=== PATIENT | female | born 1960 | race African-American/Black ===

== ENCOUNTER 2020-01-21 03:51 | Emergency (ER) | payer OTHER ==
[~2020-01-21] VITALS: Ht 154.9 cm; Wt 87.5 kg
--- NOTE | 2020-01-21 04:01 | PHYS DOC ---
Past History Past Medical History: Anxiety, Bronchitis, Cancer, Diabetes, Fibromyalgia, High Cholesterol, Hypertension, IBS, Migraines, Other (KYREE HEARD MD) Past Surgical History: Hysterectomy, Tubal ligation, Other Past Surgical History 2018. Bowel Obstruction and Cancer (KYREE HEARD MD) Alcohol Use: None Drug Use: None (KYREE HEARD MD) General Adult EDM: Chief Complaint: COUGH HPI: HPI: ". I ve been sick too long.. been coughing.. nothing coming up... I do have fibromyalgia.. and chronic pain.. just not right.. " .. " just not right..." Patient is a 59 year old female who presents with above hx and complaints increased complaints of myalgia, arthralgia, fever, chills and malaise. Patient has had a nonproductive cough for the past week. Patient denies any recent travel outside the [place] area. Did have a large family meeting for Thanksgiving but reportedly none of them have come down with Covcuco. Patient normally follows at for all her care. Has in the past followed at [facility]. Patient has past medical history of prediabetes, hypertension, elevated cholesterol, arthritis, and chronic fibromyalgia. Patient had previous episode of small bowel obstruction 2018 and with that surgery they discovered some cancer. Reportedly the surgery cleared any evidence of cancer. Patient had no chemotherapy or radiation afterwards. Patient denies any change in meds. Patient did not get a flu vaccination this year. (KYREE HEARD MD) Review of Systems: Review of Systems: Constitutional: Subjective complaints of fever or chills Eyes: Denies change in visual acuity HENT: Denies nasal congestion or sore throat Respiratory: Complains of cough nonproductive Cardiovascular: Denies chest pain or edema GI: Denies abdominal pain, nausea, vomiting, bloody stools or diarrhea : Denies dysuria Musculoskeletal: Complains of generalized arthralgia and myalgia Integument: Denies rash Neurologic: Denies headache, focal weakness or sensory changes Endocrine: Denies polyuria or polydipsia Lymphatic: Denies swollen glands Psychiatric: Denies depression or anxiety (KYREE HEARD MD) Family History: Family History: Noncontributory to presentation (KYREE HEARD MD) Current Medications: Current Meds: See nursing for home meds (KYREE HEARD MD) Allergies: Allergies: Allergies Coded Allergies Type Severity Reaction Last Updated Verified Penicillins Allergy Intermediate 11/06/13 No codeine Allergy Intermediate 11/06/13 No phenol Allergy Intermediate CHLORACETIN 11/06/13 Yes acetaminophen Allergy Mild 11/06/13 No (KYREE HEARD MD) Physical Exam: PE: Constitutional: Moderate acute distress, non-toxic appearance. [] HENT: Normocephalic, atraumatic, bilateral external ears normal, oropharynx moist, no oral exudates, nose lysed for own turbinates with clear rhinorrhea Eyes: PERRLA, EOMI, conjunctiva normal, no discharge. [] Neck: Normal range of motion, no tenderness, supple, no stridor. [] Cardiovascular: Tacky heart rate regular rhythm, no murmur, PMI to the left Lungs & Thorax: Bilateral breath sounds equal apex with few scattered wheezes, basilar crackles on auscultation [] Abdomen: Bowel sounds normal, soft, no tenderness, no masses, no pulsatile masses. Obese. Skin: Warm, dry, no erythema, no rash. [] Back: No tenderness, no CVA tenderness. [] Extremities: No tenderness, no cyanosis, no clubbing, ROM intact, ankle edema. [] Neurologic: Alert and oriented X 3, normal motor function, normal sensory function, no focal deficits noted. [] Psychologic: Affect anxious , judgement normal, mood normal. [] (KYREE HEARD MD) EKG: EKG: [] (KYREE HEARD MD) Radiology/Procedures: Radiology/Procedures: [][place] [address] IMAGING REPORT Signed PATIENT: JOCELINE COLIN ACCOUNT: [id number] : 1960 LOCATION: ER AGE: 59 SEX: F EXAM STATUS: PRE ER ORD. PHYSICIAN: KYREE HEARD MD REASON: Abdomen pain, nausea, hx SBO PROCEDURE: ACUTE ABDOMEN SERIES INDICATION: Reason: Abdomen pain, nausea, hx SBO / Spl. Instructions: / History: COMPARISON: None. IMPRESSION: 3 views of the chest and abdomen. Degenerative changes the spine. Cardiac silhouette is unremarkable. No definite focal airspace consolidation. Scoliotic curvature of the spine. Air scattered throughout the large and small bowel in a nonspecific but not grossly obstructive pattern. Degenerative changes of the bilateral hips. There is a calcification in the right hemipelvis measuring approximately 3 mm. Could be secondary to a phlebolith but would correlate with symptoms in the region given that a ureter stone can also have this appearance. Electronically signed by: Jay Thompson MD (01/21/2020 5:15 AM) DESKTOP- [id number] DICTATED AND SIGNED BY: JAY THOMPSON MD DATE: 01/21/20 0511 CC: KYREE HEARD MD; MIKO QUINTANA MD ~MTH0 0 (KYREE HEARD MD) Heart Score: Risk Factors: Risk Factors: DM, Current or recent (<one month) smoker, HTN, HLP, family history of CAD, obesity. Risk Scores: Score 0 - 3: 2.5% MACE over next 6 weeks - Discharge Home Score 4 - 6: 20.3% MACE over next 6 weeks - Admit for Clinical Observation Score 7 - 10: 72.7% MACE over next 6 weeks - Early Invasive Strategies (KYREE HEARD MD) Course & Med Decision Making: Course & Med Decision Making Pertinent Labs and Imaging studies reviewed. (See chart for details) Pt. endorse to Dr. Perdomo at shift. change. She will make disposition of pt. Impression: 1. Fibromyalgia exacerbation [] (KYREE HEARD MD) Dragon Disclaimer: Dragon Disclaimer: This electronic medical record was generated, in whole or in part, using a voice recognition dictation system. (KYREE HEARD MD) Departure Departure: Impression: Primary Impression: Cough Disposition: 01 DC HOME SELF CARE/HOMELESS Condition: STABLE Referrals: MIKO QUINTANA MD (PCP) Patient Instructions: Cough, Adult, [id number] Dragon Disclaimer This chart was dictated in whole or in part using Voice Recognition software in a busy, high-work load, and often noisy Emergency Department environment. It may contain unintended and wholly unrecognized errors or omissions. (KYREE HEARD MD) KYREE HEARD MD Jan 21, 2020 04:01 YO PERDOMO MD Jan 21, 2020 07:50
[2020-01-21] MEDS ORDERED: IV RINGERS SOLUTION,LACTATED 1,000 ML IV SCH (04:30)
[2020-01-21] MEDS ORDERED: ALBUTEROL SULFATE 8GM INHALER. INH ONE (04:45)
--- NOTE | 2020-01-21 05:18 | RAD ---
INDICATION: Reason: Abdomen pain, nausea, hx SBO / Spl. Instructions: / History: COMPARISON: None. IMPRESSION: 3 views of the chest and abdomen. Degenerative changes the spine. Cardiac silhouette is unremarkable. No definite focal airspace consolidation. Scoliotic curvature of the spine. Air scattered throughout the large and small bowel in a nonspecific but not grossly obstructive pattern. Degenerative changes of the bilateral hips. There is a calcification in the right hemipelvis measuring approximately 3 mm . Could be secondary to a phlebolith but would correlate with symptoms in the region given that a ure ter stone can also have this appearance. Electronically signed by: Eduardo Vizcarra MD (01/21/2020 5:15 AM) [id number]
[2020-01-21 05:36] LABS: BACTERIA,URINE 0 /HPF (0-FEW); BARBITURATES NEG (NEG); BENZODIAZEPINES NEG (NEG); BILIRUBIN,URINE NEG (NEG); CANNABINOIDS NEG (NEG); CLARITY,URINE CLEAR; COCAINE NEG (NEG); COLOR,URINE YELLOW; GLUCOSE,URINE NEG (NEG); METHADONE NEG (NEG); NITRITE,URINE NEG (NEG); OPIATES NEG (NEG); PHENCYCLIDINE NEG (NEG); RBC,URINE 0 /HPF (0-2); SQUAMOUS EPITHELIAL CELL,UR OCC /LPF; UROBILINOGEN,URINE 0.2 mg/dL (0.2 mg/dL)
[2020-01-21 05:37] LABS: AMPHETAMINE/METHAMPHETAMINE NEG (NEG)
[2020-01-21 06:35] LABS: BASO % 1 % (0-3); EOS # 0.2 x10^3/uL (0.0-0.7); EOS % 4 % (0-3); HEMATOCRIT 41.9 % (36.0-47.0); HEMOGLOBIN 13.8 g/dL (12.0-15.5); LYMPH # 1.4 x10^3/uL (1.0-4.8); LYMPH % 26 % (24-48); MEAN CORPUSCULAR HEMOGLOBIN 29 pg (25-35); MEAN CORPUSCULAR HGB CONC 33 g/dL (31-37); MEAN CORPUSCULAR VOLUME 87 fL (79-100); MONO # 0.4 x10^3/uL (0.0-1.1); MONO % 8 % (0-9); NEUT # 3.3 x10^3uL (1.8-7.7); NEUT % 62 % (31-73); PLATELET COUNT 270 x10^3/uL (140-400); RED BLOOD COUNT 4.83 x10^6/uL (3.50-5.40); RED CELL DISTRIBUTION WIDTH 14.2 % (11.5-14.5); WHITE BLOOD COUNT 5.4 x10^3/uL (4.0-11.0)
[2020-01-21 06:42] LABS: CALCIUM 9.7 mg/dL (8.5-10.1); CREATININE 1.1 mg/dL (0.6-1.0); GFR 61.9; POTASSIUM 3.8 mmol/L (3.5-5.1)
[2020-01-21 06:54] LABS: ALBUMIN 3.6 g/dL (3.4-5.0); C REACTIVE PROTEIN 2.3 mg/L (0-3.3); DIRECT BILIRUBIN 0.1 mg/dL (0.0-0.2); MAGNESIUM 1.8 mg/dL (1.8-2.4); TOTAL BILIRUBIN 0.4 mg/dL (0.2-1.0); TOTAL PROTEIN 7.1 g/dL (6.4-8.2)
[2020-01-21] MEDS ORDERED: ONDANSETRON PF 4 MG/2 ML VIAL. IVP ONE (07:45)
[2020-01-21] MEDS ORDERED: ONDANSETRON PF 4 MG/2 ML VIAL. ONE (07:47)
[2020-01-21 07:51] VITALS: BP 131/75
--- NOTE | 2020-01-21 12:03 | EKG ---
[address] [address] Test Date: 2020-01-21 Test Time: 06:37:09 Pat Name: JOCELINE MCGRAW Department: Room: Gender: F [employer] Work[employer] Helper: PEGGY : 1960 Requested By: YO LAZARO Order Number: [id number] Reading MD: Measurements Intervals [place] Day Rate: 76 P: 59 MD: 180 QRS: -9 QRSD: 82 T: 15 QT: 406 QTc: 461 Interpretive Statements SINUS RHYTHM LEFTWARD AXIS QRS(T) CONTOUR ABNORMALITY CONSISTENT WITH INFERIOR INFARCT PROBABLY OLD ABNORMAL ECG RI6.02 No previous ECG available for comparison
== END 2020-01-21 08:30 | disposition home or self-care (01) ==
LOC: ER 03:51
DX: M79.7 Fibromyalgia (principal); R05 Cough; R50.9 Fever, unspecified; F41.9 Anxiety disorder, unspecified; E11.9 Type 2 diabetes mellitus without complications; E78.00 Pure hypercholesterolemia, unspecified; I10 Essential (primary) hypertension; K52.89 Other specified noninfective gastroenteritis and colitis; G43.909 Migraine, unspecified, not intractable, without status migrainosus; Z88.0 Allergy status to penicillin; Z88.5 Allergy status to narcotic agent; Z88.8 Allergy status to other drugs, medicaments and biological substances
CPT/HCPCS: 36415; 74022; 80048; 80076; 80307; 81001; 82550; 83690; 83735; 83880; 84443; 84484; 85025; 85379; 85610; 85730; 86140; 87086; 93005; 94640; 96361; 96374; 99285; J2405; J7120; J7613; 94664